=== PATIENT | female | born 1970 | race Asian ===

== ENCOUNTER 2017-02-13 21:53 | Emergency (ER) | payer BC ==
[~2017-02-13] VITALS: Ht 157.5 cm; Wt 79.5 kg
[2017-02-13 22:02] VITALS: BP 152/102
[2017-02-13] MEDS ORDERED: OXYcodone/APAP 5/325MG TABLET ONE (22:34)
[2017-02-13] MEDS ORDERED: OXYcodone/APAP 5/325MG TABLET PO ONE (23:00)
== END 2017-02-13 23:52 | disposition home or self-care (01) ==
LOC: ED 23:50
DX: S93.621A Sprain of tarsometatarsal ligament of right foot, initial encounter (principal); S80.11XA Contusion of right lower leg, initial encounter; I10 Essential (primary) hypertension; J45.909 Unspecified asthma, uncomplicated; E11.9 Type 2 diabetes mellitus without complications; M06.9 Rheumatoid arthritis, unspecified; Z88.8 Allergy status to other drugs, medicaments and biological substances; Z91.02 Food additives allergy status; Z88.6 Allergy status to analgesic agent; X58.XXXA Exposure to other specified factors, initial encounter; Y93.89 Activity, other specified; Y99.8 Other external cause status; Y92.89 Other specified places as the place of occurrence of the external cause